=== PATIENT | female | born 1965 | race American Indian/Alaskan Native ===

== ENCOUNTER 2020-07-24 09:00 | Outpatient (CLI) | payer OTHER ==
--- NOTE | 2020-07-28 13:02 | XRay Report ---
ABDOMEN 1 VIEW(S) INDICATION / CLINICAL INFORMATION: CALCULUS OF KIDNEY N20.0. COMPARISON: None available. FINDINGS: TUBES / LINES: None. BOWEL GAS PATTERN: No significant abnormality. FREE AIR / EXTRALUMINAL GAS: None seen. ADDITIONAL FINDINGS: 3 small calcifications overlie the mid to inferior right kidney which probably r epresent small stones. There is no obvious left nephrolithiasis although the left kidney is poorly im aged due to overlying bowel gas. IMPRESSION: Right nephrolithiasis as described. Signer Name: Aj Vega Jr, MD Signed: 07/24/2020 10:38 AM Workstation Name: [id number]
== END 2020-07-24 09:01 | disposition home or self-care (01) ==
LOC: SPVIMAG 09:00
PROVIDERS: ATTEND Urology
DX: N20.0 Calculus of kidney (principal)
CPT/HCPCS: 74018